=== PATIENT | male | born 1955 | race Caucasian/White ===

== ENCOUNTER 2020-02-18 11:17 | Emergency (ER) | payer BC, MEDICARE ==
[2020-02-18] MEDS ORDERED: Morphine 4 MG/ML VIAL ONE (11:57)
[2020-02-18] MEDS ORDERED: Ondansetron PF 4 MG/2 ML Vial ONE (11:57)
[2020-02-18 12:09] LABS: #Eosinphils 0.1 thou/uL (0.0-0.7); #Lymphocytes 1.3 thou/uL (1.20-3.40); #Monocytes 0.6 thou/uL (0.11-0.59); #Neutrophils 5.8 thou/uL (1.40-6.50); %Eosinophils 1.9 % (0.0-10.0); %Lymphocytes 16.4 % (21.0-51.0); %Monocytes 7.2 % (0.0-10.0); %Neutrophils 74.5 % (42.0-75.0); Mean Corpuscular Hemoglobin 29.9 pg (27.0-31.0); Mean Corpuscular Volume 87.9 fL (78.0-98.0); Mean Platelet Volume 7.1 fL (7.4-10.4); Platelet Count 265 thou/uL (130-400); RBC Distribution Width 11.7 % (11.5-14.5); Red Blood Cell (RBC) Count 5.35 mill/uL (4.70-6.10); White Blood Cell (WBC) Count 7.8 thou/uL (4.8-10.8)
[2020-02-18 12:23] LABS: ALT (SGPT) 18 U/L (8-55); AST (SGOT) 15 U/L (5-34); Albumin 4.4 g/dL (3.4-4.8); Alkaline Phosphatase 62 U/L (40-110); Anion Gap 11 mmol/L (10-20); BUN (Urea Nitrogen) 16 mg/dL (8.4-25.7); Bilirubin, Total 0.9 mg/dL (0.2-1.2); Calc. Creatinine Clearance 0 mL/min (70-130); Calcium 9.4 mg/dL (7.8-10.44); Carbon Dioxide 26 mmol/L (23-31); Chloride 106 mmol/L (98-107); Estimated GFR-MDRD 67; Glucose 101 mg/dL (80-115); Lipase 14 U/L (8-78); Potassium 3.9 mmol/L (3.5-5.1); Protein, Total 7.4 g/dL (5.8-8.1); Sodium 139 mmol/L (136-145)
--- NOTE | 2020-02-18 12:42 | ULT ---
RIGHT UPPER QUADRANT ULTRASOUND: Date: 02/18/2020 PROVIDED CLINICAL HISTORY: Right upper quadrant pain. FINDINGS: The pancreas is largely obscured. The liver demonstrates a coarsened and echogenic appearance compati ble with fatty infiltration. There is no evidence for mass or intrahepatic biliary ductal dilatation. The common duct is not dilated. The gallbladder demonstrates no stones, wall thickening, or perichol ecystic fluid. The right kidney demonstrates no evidence for hydronephrosis or mass. IMPRESSION: 1. No evidence for an acute process. 2. Fatty infiltration of the liver. POS: [facility]
[2020-02-18 13:55] LABS: Bilirubin Negative (Negative); Blood, Urine Negative (Negative); Clarity Clear (Clear); Glucose, Urine (Dipstick) Normal (Negative); Ketone, Urine Trace mg/dL (Negative); Leukocyte Negative Leu/uL (Negative); Nitrite Negative (Negative); Protein, Urine (Dipstick) Negative (Neg-Trace); Specific Gravity, Urine 1.026 (1.002-1.036); Urobilinogen Normal mg/dL (Less than 2); pH, Urine 5.5 (5.0-9.0)
== END 2020-02-18 14:35 | disposition home or self-care (01) ==
LOC: ERS 11:17
DX: R10.13 Epigastric pain (principal); R19.7 Diarrhea, unspecified
CPT/HCPCS: 76705; 80053; 81003; 83690; 84484; 85025; 93005; 94760; 96361; 96374; 96375; J2270; J2405